=== PATIENT | female | born 1980 | race African-American/Black ===

== ENCOUNTER 2021-09-10 06:45 | Inpatient (IN) | payer OTHER ==
[2021-09-10 09:14] VITALS: BMI 36.8
[2021-09-10] MEDS ORDERED: BUTORPHANOL TARTRATE 1 MG/ML VIAL IVPB ONE (09:37)
[2021-09-10] MEDS ORDERED: PROMETHAZINE HCL 25 MG/1 ML VIAL IVPUSH ONE (09:37)
[2021-09-10] MEDS ORDERED: DEXTROSE 5%-LACTATED RINGERS 1,000 ML IV SCH (09:45)
[2021-09-10] MEDS ORDERED: OXYTOCIN 30 UNITS in 0.9% NS 30 UNIT/500 ML INFUS.BAG IVPB ONE (09:50)
[2021-09-10 09:57] LABS: BASO % 0.4 % (0-2.0); EOS % 0.2 % (0-4.5); HEMATOCRIT 33.6 % (32.4-45.2); HEMOGLOBIN 11.6 GM/dL (10.7-15.3); LYMPH % 6.8 % (8-40); MCH 31.4 pg (25.7-33.7); MCHC 34.6 g/dl (32.0-36.0); MEAN CELL VOLUME 90.9 fl (80-96); MEAN PLT VOLUME 7.9 fl (7.5-11.1); MONO % 7.9 % (3.8-10.2); NEUT % 84.7 % (42.8-82.8); PLATELET COUNT 226 10^3/uL (134-434); RDW 14.7 % (11.6-15.6); WHITE BLOOD COUNT 11.2 K/mm3 (4.0-10.0)
[2021-09-10] MEDS ORDERED: OXYTOCIN 30 UNITS in 0.9% NS 30 UNIT/500 ML INFUS.BAG IVPB SCH (10:00)
[2021-09-10 10:04] LABS: PROTHROMBIN TIME (PATIENT) 11.2 SEC (9.7-13.0)
[2021-09-10 10:25] LABS: CALCIUM 9.5 mg/dL (8.5-10.1)
[2021-09-10 10:26] LABS: BLOOD UREA NITROGEN 6.7 mg/dL (7-18)
[2021-09-10 10:29] LABS: CREATININE 0.5 mg/dL (0.55-1.3)
[2021-09-10] MEDS ORDERED: BUTORPHANOL TARTRATE 2 MG/ML VIAL ONE (10:30)
[2021-09-10] MEDS ORDERED: PROMETHAZINE HCL 25 MG/1 ML VIAL ONE (10:30)
[2021-09-10 20:19] VITALS: BP 116/76; PULSE 112; TEMP 98.4
== END 2021-09-10 21:05 | disposition home or self-care (01) | DRG 833 ==
LOC: JDEL 06:45 → JLDR 08:50
PROVIDERS: ADMIT Obstetrics & Gynecology Maternal & Fetal Medicine; ATTEND Obstetrics & Gynecology Maternal & Fetal Medicine
DX: O60.03 Preterm labor without delivery, third trimester (principal); Z3A.39 39 weeks gestation of pregnancy
CPT/HCPCS: 36415; 80048; 85025; 85610; 85730; 86780; 86850; 86900; 86901; C9803; U0003; U0005

== ENCOUNTER 2021-09-13 05:10 | Inpatient (IN) | payer OTHER ==
[2021-09-13] MEDS: DEXTROSE 5%-LACTATED RINGERS 1,000 ML IV SCH ×3 (07:10→17:12)
[2021-09-13] MEDS ORDERED: SODIUM CHLORIDE 1,000 ML IV STA (07:26)
[2021-09-13] MEDS ORDERED: FENTANYL/BUPIVACAINE/NS/PF - PCEA - 50 ML DISP.SYRIN EP ONE ×5 (07:27→22:21)
[2021-09-13] MEDS ORDERED: PCA PUMP NR ONE ×3 (07:27→23:50)
[2021-09-13 07:37] VITALS: BMI 36.8
[2021-09-13] MEDS ORDERED: BUPIVACAINE HCL/PF 0.25% (2.5MG/ML) 10 ML VIAL ONE (08:46)
[2021-09-13] MEDS: FENTANYL/BUPIVACAINE/NS/PF - PCEA - 50 ML DISP.SYRIN EP SCH ×3 (09:00→22:30)
[2021-09-13 10:32] LABS: BASO % 0.3 % (0-2.0); EOS % 0.2 % (0-4.5); HEMATOCRIT 33.4 % (32.4-45.2); HEMOGLOBIN 11.6 GM/dL (10.7-15.3); LYMPH % 6.8 % (8-40); MCH 31.5 pg (25.7-33.7); MCHC 34.6 g/dl (32.0-36.0); MEAN CELL VOLUME 91.2 fl (80-96); MEAN PLT VOLUME 7.3 fl (7.5-11.1); MONO % 8.7 % (3.8-10.2); PLATELET COUNT 216 10^3/uL (134-434); RBC 3.67 M/mm3 (3.60-5.2); RDW 14.8 % (11.6-15.6)
[2021-09-13 10:40] LABS: INR 0.97 (0.83-1.09); PROTHROMBIN TIME (PATIENT) 11.4 SEC (9.7-13.0)
[2021-09-13 10:42] LABS: ACTIVATED PTT 27.1 SECONDS (25.2-36.5)
[2021-09-13 10:49] LABS: CALCIUM 9.5 mg/dL (8.5-10.1)
[2021-09-13 10:50] LABS: BLOOD UREA NITROGEN 5.5 mg/dL (7-18)
[2021-09-13 10:53] LABS: CREATININE 0.6 mg/dL (0.55-1.3)
[2021-09-13] MEDS ORDERED: OXYTOCIN 30 UNITS in 0.9% NS 30 UNIT/500 ML INFUS.BAG IVPB SCH (14:00)
[2021-09-13] MEDS ORDERED: OXYTOCIN 30 UNITS in 0.9% NS 30 UNIT/500 ML INFUS.BAG IVPB ONE (14:10)
[2021-09-13] MEDS ORDERED: NALOXONE HCL 0.4 MG/ML VIAL IVPUSH PRN (15:35)
[2021-09-14] MEDS ORDERED: morphine SULFATE/PF 1 MG/2 ML (2cc Syringe - QUVA) ONE (00:28)
[2021-09-14] MEDS ORDERED: KETAMINE HCL 500 MG/10 ML VIAL ONE (01:48)
[2021-09-14] MEDS ORDERED: MIDAZOLAM HCL 2 MG/2 ML SINGLE DOSE VIAL ONE (01:49)
[2021-09-14] MEDS ORDERED: PROPOFOL 20 ML ONE ×2 (01:52→02:31)
[2021-09-14] MEDS ORDERED: SUCCINYLCHOLINE CHLORIDE 200 MG/10 ML SYRINGE ONE (02:32)
[2021-09-14 03:08] LABS: CORD HCO3 28.4 mmHg (20-29); CORD PCO2 115.9 mmHg (30-78); CORD pH 7.007 (7.14-7.44)
[2021-09-14 03:10] LABS: CORD HCO3 25.4 mmHg (20-29); CORD PCO2 75.6 mmHg (30-78); CORD pH 7.145 (7.14-7.44)
[2021-09-14] MEDS ORDERED: METHYLERGONOVINE MALEATE 0.2 MG/1 ML AMP IM PRN (03:22)
[2021-09-14] MEDS ORDERED: ACETAMINOPHEN 325 MG TABLET (FP) PO PRN (03:22)
[2021-09-14] MEDS ORDERED: ACETAMINOPHEN 1000 MG/100 ML BAG IVPB PRN (03:23)
[2021-09-14] MEDS ORDERED: ACETAMINOPHEN INJECTION 100 ML IVPB ONE (03:38)
[2021-09-14] MEDS: OXYTOCIN 20 UNITS in 0.9% NS 20 UNIT/1,000 ML INFUS.BAG IV SCH (07:00)
[2021-09-14] MEDS: oxyCODONE HCL 5 MG TABLET PO SCH ×4 (10:37→21:07)
[2021-09-14] MEDS: SIMETHICONE 80 MG TAB.CHEW (FP) PO PRN ×2 (18:12→21:08)
[2021-09-14] MEDS: IBUPROFEN 600 MG TABLET (FP) PO PRN (22:36)
[2021-09-15] MEDS: oxyCODONE HCL 5 MG TABLET PO SCH ×6 (02:15→21:12)
[2021-09-15] MEDS ORDERED: BISACODYL 10 MG SUPP.RECT RC PRN (03:22)
[2021-09-15 09:09] LABS: BASO % 0.1 % (0-2.0); EOS % 0.3 % (0-4.5); HEMATOCRIT 26.9 % (32.4-45.2); HEMOGLOBIN 9.1 GM/dL (10.7-15.3); LYMPH % 6.5 % (8-40); MCH 31.1 pg (25.7-33.7); MCHC 33.7 g/dl (32.0-36.0); MEAN CELL VOLUME 92.2 fl (80-96); MONO % 8.6 % (3.8-10.2); NEUT % 84.5 % (42.8-82.8); PLATELET COUNT 176 10^3/uL (134-434); RBC 2.92 M/mm3 (3.60-5.2); RDW 14.4 % (11.6-15.6); WHITE BLOOD COUNT 12.3 K/mm3 (4.0-10.0)
[2021-09-15] MEDS: IBUPROFEN 600 MG TABLET (FP) PO PRN (12:02)
[2021-09-15] MEDS: OXYTOCIN 20 UNITS in 0.9% NS 20 UNIT/1,000 ML INFUS.BAG IV SCH (13:26)
[2021-09-15] MEDS: SIMETHICONE 80 MG TAB.CHEW (FP) PO PRN ×3 (14:30→21:13)
[2021-09-15] MEDS: FERROUS SO4 325 MG TABLET (FP) PO SCH (17:57)
[2021-09-16] MEDS ORDERED: DOCUSATE SODIUM 100 MG CAPSULE (FP) PO PRN (06:50)
[2021-09-16] MEDS: SIMETHICONE 80 MG TAB.CHEW (FP) PO PRN ×2 (08:54→19:09)
[2021-09-16] MEDS: FERROUS SO4 325 MG TABLET (FP) PO SCH ×3 (09:16→17:30)
[2021-09-16] MEDS: IBUPROFEN 600 MG TABLET (FP) PO PRN ×2 (09:16→19:08)
[2021-09-17 08:56] LABS: BASO % 0.7 % (0-2.0); HEMATOCRIT 26.6 % (32.4-45.2); HEMOGLOBIN 9.2 GM/dL (10.7-15.3); LYMPH % 10.6 % (8-40); MCH 31.4 pg (25.7-33.7); MCHC 34.6 g/dl (32.0-36.0); MEAN CELL VOLUME 90.7 fl (80-96); MEAN PLT VOLUME 7.2 fl (7.5-11.1); MONO % 8.3 % (3.8-10.2); NEUT % 78.4 % (42.8-82.8); PLATELET COUNT 253 10^3/uL (134-434); RBC 2.94 M/mm3 (3.60-5.2); RDW 14.2 % (11.6-15.6); WHITE BLOOD COUNT 9.2 K/mm3 (4.0-10.0)
[2021-09-17] MEDS: IBUPROFEN 600 MG TABLET (FP) PO PRN (09:04)
[2021-09-17] MEDS: FERROUS SO4 325 MG TABLET (FP) PO SCH ×2 (09:04→13:59)
[2021-09-17 13:07] VITALS: BP 124/78; PULSE 88; TEMP 98.2
== END 2021-09-17 16:00 | disposition home or self-care (01) | DRG 788 ==
LOC: JDEL 05:10 → JLDR 06:30 → J3W 09-14 04:52
PROVIDERS: ADMIT Obstetrics & Gynecology Maternal & Fetal Medicine; ATTEND Obstetrics & Gynecology Maternal & Fetal Medicine
PROC: 10D00Z1 Extraction of Products of Conception, Low, Open Approach (ICD-10-PCS; principal; 2021-09-13)
DX: O63.0 Prolonged first stage (of labor) (principal); O99.214 Obesity complicating childbirth; E66.9 Obesity, unspecified; N73.6 Female pelvic peritoneal adhesions (postinfective); Z3A.39 39 weeks gestation of pregnancy; Z37.0 Single live birth
CPT/HCPCS: 36415; 36600; 80048; 82803; 85025; 85610; 85730; 86850; 86900; 86901; 88307-TC; J0131